=== PATIENT | male | born 1955 | race Caucasian/White ===

== ENCOUNTER → 2016-06-23 | Outpatient (CLI) | payer BC ==
--- NOTE | 2016-06-23 16:03 | DX ---
Right Clavicle, Two Views Reason for examination: Right clavicular pain; comparison February 25, 2011. FINDINGS: Postoperative changes of ORIF with plate and multiple screws holding the right clavicle in anatomic alignment. This is unchanged from the 2011 study. No acute abnormality is identified. Incide ntally, an osseous fragment adjacent to the inferior aspect of the glenoid is unchanged. IMPRESSION: Stable changes of right clavicular ORIF with no acute abnormality identified.
== END ==
LOC: BMCIMAGING 15:11
PROVIDERS: ATTEND Orthopaedic Surgery
DX: M89.8X1 Other specified disorders of bone, shoulder (principal)

== ENCOUNTER → 2016-11-08 | Outpatient (CLI) | payer BC | LOC: BMCIMAGING 12:52 | PROVIDERS: ATTEND Family Medicine | DX: E07.89 Other specified disorders of thyroid (principal); I65.22 Occlusion and stenosis of left carotid artery | CPT/HCPCS: 76536-PO ==

== ENCOUNTER → 2017-06-21 | Outpatient (CLI) | payer BC | LOC: FIMAGING 16:01 | DX: J18.1 Lobar pneumonia, unspecified organism (principal) ==